=== PATIENT | male | born 1950 | race African-American/Black ===

== ENCOUNTER → 2016-08-29 | Outpatient (CLI) | payer MEDICARE, MEDICAID | LOC: RAD 14:05 | PROVIDERS: ATTEND Internal Medicine Medical Oncology | DX: D47.2 Monoclonal gammopathy (principal) | CPT/HCPCS: 77075 ==

== ENCOUNTER → 2017-12-27 | Outpatient (CLI) | payer MEDICARE, MEDICAID ==
--- NOTE | 2017-12-27 20:25 | XCELERA REPORT ---
[address] [address] Transthoracic Echocardiogram Report Name: PILY BENNETT Sam Age: 67 yrs Gender: Male : 1950 Patient Status: Outpatient Patient Location: Study Date: 12/27/2017 01:31 PM Height: 69 in Weight: 216 lb BSA: 2.1 m2 Procedure: A two-dimensional transthoracic echocardiogram with color flow Doppler was performed. Study Quality: Technically suboptimal. The study was technically difficult with many images being suboptimal in quality. Poor endocardial visualisation and doppler imterogation. Reason For Study: CP History: Chest pain. Ordering Physician: SARAH SCHULTZ Performed By: Daysi Giles Interpretation Summary Poor endocardial visualisation and doppler imterogation. The left ventricle is grossly normal size. There is normal left ventricular wall thickness. Probably no defenite regional wall motion abnormality.LVEF is mormal at > than 60%. Doppler measurements suggest impaired left ventricular relaxation, which is associated with grade I/IV or mild diastolic dysfunction Right atrium not well visualized secondary to technical limitations The left atrial size is normal. There is no mitral valve stenosis. There is no evidence of mitral valve prolapse. There is no mitral regurgitation noted. There is no aortic valve stenosis No aortic regurgitation is present. There is no tricuspid stenosis. No tricuspid regurgitation. Unable to calculate RVSP due to insufficient TR jet. There is no pericardial effusion. MMode/2D Measurements & Calculations RVDd: 3.6 cm LVIDd: 5.3 cm FS: 36.3 % Ao root diam: 3.6 cm IVSd: 0.95 cm LVIDs: 3.4 cm EDV(Teich): 136.4 ml Ao root area: 10.1 cm2 LVPWd: 1.0 cm ESV(Teich): 47.0 ml EF(Teich): 65.6 % Doppler Measurements & Calculations MV E max nicolas: MV dec slope: Ao V2 max: LV V1 max P.9 cm/sec 241.7 cm/sec2 99.6 cm/sec 3.9 mmHg MV A max nicolas: MV dec time: 0.23 secAo max P.0 mmHg LV V1 max: 84.5 cm/sec 98.1 cm/sec MV E/A: 0.66 PA V2 max: PI max nicolas: Pulm Sys Nicolas: 83.1 cm/sec 131.2 cm/sec 47.1 cm/sec PA max P.8 mmHgPI max P.9 mmHg Pulm Parker Nicolas: PI dec slope: 20.9 cm/sec Pulm A Revs Nicolas: 201.6 cm/sec2 22.4 cm/sec Pulm A Revs Dur: 0.11 sec Pulm S/D: 2.2 Left Ventricle The left ventricle is grossly normal size. There is normal left ventricular wall thickness. Probably no defenite regional wall motion abnormality.LVEF is mormal at > than 60%. Doppler measurements suggest impaired left ventricular relaxation, which is associated with grade I/IV or mild diastolic dysfunction. Right Ventricle The right ventricle is not well visualized secondary to technical limitations. Atria Right atrium not well visualized secondary to technical limitations. The left atrial size is normal. Mitral Valve There is no evidence of mitral valve prolapse. There is no mitral valve stenosis. There is no mitral regurgitation noted. Aortic Valve There is no aortic valve stenosis. No aortic regurgitation is present. Tricuspid Valve There is no tricuspid stenosis. No tricuspid regurgitation. Unable to calculate RVSP due to insufficient TR jet. Pulmonic Valve There is no pulmonic valvular stenosis. There is no pulmonic valvular regurgitation. Great Vessels The aortic root is not well visualized. Effusions There is no pericardial effusion. : SARAH SCHULTZ > Sarah Schultz
== END ==
LOC: SP 13:20
PROVIDERS: ATTEND Specialist
DX: R07.9 Chest pain, unspecified (principal)
CPT/HCPCS: 93306

== ENCOUNTER → 2018-06-25 | Outpatient (CLI) | payer MEDICARE, MEDICAID ==
--- NOTE | 2018-06-25 10:42 | RADIOLOGY REPORT (SQ) ---
EXAM DESCRIPTION: U/S ABDOMEN COMPLETE W/O DOP COMPLETED DATE/TIME: 06/25/2018 10:28 am REASON FOR STUDY: R10.9 UNSPECIFIED ABD PAIN/N18.2 CHRONIC KIDNEY DISEASE, STAGE 2 (MILD)/ R10.9 UN SPECIFIED ABDOMINAL PAIN N18.2 CHRONIC KIDNEY DISEASE, STAGE 2 (MILD) COMPARISON: None. TECHNIQUE: Dynamic and static grayscale images acquired of the abdomen and recorded on PACS. Additio nal selected color Doppler and spectral images recorded. Note: Study does not meet criteria for complete doppler/duplex scan LIMITATIONS: None. FINDINGS: PANCREAS: The head of the pancreas is of normal echogenicity. The body and tail are obsc ured by overlying bowel gas. LIVER: Fatty liver. The liver measures 17.0 cm, within the upper limits of normal. LIVER VASCULATURE: Normal directional flow of the main portal vein and hepatic veins. GALLBLADDER: Prior cholecystectomy. ULTRASOUND-DETECTED AGUIRRE'S SIGN: Negative. INTRAHEPATIC DUCTS AND COMMON DUCT: CBD measures 3.3 mm in diameter, normal. The intrahepatic ducts normal caliber. No filling defects. INFERIOR VENA CAVA: Normal flow. AORTA: No aneurysm. RIGHT KIDNEY: The right kidney measures 10.2 cm in length, normal size. Normal echogenicity. No so lid or suspicious masses. No hydronephrosis. No calcifications. LEFT KIDNEY: Left kidney measures 10.2 cm in length, normal size. Normal echogenicity. No solid or suspicious masses. No hydronephrosis. No calcifications. SPLEEN: The spleen measures 10.8 cm in length, normal size. Normal size. No solid masses. PERITONEAL AND PLEURAL SPACES: No ascites or effusions. OTHER: No other significant finding. IMPRESSION: 1. Prior cholecystectomy. 2. Fatty liver. 3. The body and tail of the pancreas are suboptimally visualized due to overlying bowel gas. TECHNICAL DOCUMENTATION: JOB ID: [id number] [employer]- All Rights Reserved Reading location - IP/workstation name: [email or web address]
== END ==
LOC: RAD 09:39
PROVIDERS: ATTEND Physician Assistant Medical
DX: K76.0 Fatty (change of) liver, not elsewhere classified (principal); R10.9 Unspecified abdominal pain; N18.2 Chronic kidney disease, stage 2 (mild)
CPT/HCPCS: 76700